=== PATIENT | male | born 1980 | race Caucasian/White ===

== ENCOUNTER 2016-09-16 21:52 | Emergency (ER) | payer BC ==
[~2016-09-16] VITALS: Ht 188 cm; Wt 120.5 kg
[~2016-09-16 21:52] MED LIST: NO HOME MEDICATIONS
[2016-09-16 21:55] VITALS: TEMP 97.8
[2016-09-16] MEDS ORDERED: FLEXERIL 1010 MG/TAB PO (22:24)
[2016-09-16] MEDS ORDERED: PROTONIX 40MG T40 MG PO (22:25)
[2016-09-16] MEDS ORDERED: ZOLOFT 50MG50 MG PO (22:25)
[2016-09-16] MEDS ORDERED: TOPROL XL 50MG50 MG PO (22:25)
[2016-09-16] MEDS ORDERED: DAZIDOX10 MG PO (22:25)
[2016-09-16] MEDS ORDERED: PREDNISONE20 MG PO (22:27)
[2016-09-17] MEDS ORDERED: DILAUDID 4MG TAB4 MG PO (01:08)
[2016-09-17 01:19] VITALS: BP 144/92; PULSE 70
== END 2016-09-17 01:48 | disposition home or self-care (01) ==
LOC: COL.ER 21:52
DX: M54.5 Low back pain (principal); M54.16 Radiculopathy, lumbar region
CPT/HCPCS: J1170; J1885; J2360; J2930; J7030

== ENCOUNTER → 2016-09-23 | Outpatient (CLI) | payer BC ==
[~2016-09-23] MED LIST changes: +DAZIDOX10 MG PO; +DILAUDID 4MG TAB4 MG PO; +FLEXERIL 1010 MG/TAB PO; +PREDNISONE20 MG PO; +PROTONIX 40MG T40 MG PO; +TOPROL XL 50MG50 MG PO; +ZOLOFT 50MG50 MG PO
== END ==
LOC: MHCPAIN 13:23
DX: G89.29 Other chronic pain (principal); M47.27 Other spondylosis with radiculopathy, lumbosacral region; M51.16 Intervertebral disc disorders with radiculopathy, lumbar region
CPT/HCPCS: G0463

== ENCOUNTER → 2016-09-24 | Outpatient (CLI) | payer BC | LOC: MHCPAIN 12:36 | DX: M47.817 Spondylosis without myelopathy or radiculopathy, lumbosacral region (principal) ==

== ENCOUNTER → 2016-09-29 | Outpatient (CLI) | payer BC | LOC: MHCPAIN 11:38 | DX: G89.29 Other chronic pain (principal); M47.27 Other spondylosis with radiculopathy, lumbosacral region; M51.16 Intervertebral disc disorders with radiculopathy, lumbar region; M51.17 Intervertebral disc disorders with radiculopathy, lumbosacral region | CPT/HCPCS: G0463 ==